=== PATIENT | female | born 1955 | race Caucasian/White ===

== ENCOUNTER → 2016-04-26 | Outpatient (CLI) | payer BC ==
[~2016-04-26] MED LIST: ALEVE 220MG220 MG PO; ASPIRIN E.C. 8181 MG PO; BENICAR; CELEXA40 MG; CIPRO 500MG TA500 MG PO; COZAAR100 MG PO; DESYREL 50MG50 MG PO; EFFEXOR-XR150 MG PO; FLEXERIL5 MG PO; GLUCOPHAGE500 MG/TAB PO; HCTZ12.5TAB PO; LEXAPRO20 MG PO; MOTRIN 800800 MG/TAB PO; NEURONTIN400 MG/CAP PO; NORCO 325 MG-51 TAB PO; PREVACID 30MG30 M1 PO; PREVACID30 MG PO; REXULTI0.5 MG PO; TIROSINT75 MC1 PO; TOPROL; TOPROL XL200 MG PO; TRILIPIX 135MG; TRILIPIX 135MG PO; TRILIPIX45 MG PO; VYTORIN 10 MG-21 TAB PO; WELLBUTRIN PO; ZETIA 10MG TAB10 MG PO; ZITHROMAX Z PA250 MG PO; ZOCOR; [UNRECOGNIZED DRUG - OTHER] IV
== END ==
LOC: BHSO 10:36
DX: F33.42 Major depressive disorder, recurrent, in full remission (principal)

== ENCOUNTER → 2016-04-28 | Outpatient (CLI) | payer BC | LOC: COL.RAD 07:51 | DX: K75.81 Nonalcoholic steatohepatitis (NASH) (principal); R74.8 Abnormal levels of other serum enzymes; K76.89 Other specified diseases of liver; Z90.49 Acquired absence of other specified parts of digestive tract ==

== ENCOUNTER → 2016-08-03 | Outpatient (CLI) | payer BC | LOC: COL.RAD 08-02 11:15 | DX: R22.1 Localized swelling, mass and lump, neck (principal) ==

== ENCOUNTER → 2016-08-12 | Outpatient (CLI) | payer BC | LOC: BHSO 09:39 | DX: F33.42 Major depressive disorder, recurrent, in full remission (principal) ==

== ENCOUNTER → 2016-08-23 | Outpatient (CLI) | payer BC | LOC: MC.RAD 11:40 | DX: Z12.31 Encounter for screening mammogram for malignant neoplasm of breast (principal) ==

== ENCOUNTER 2016-08-24 13:30 | Outpatient (RCR) | payer BC | END 2016-10-25 15:22 | LOC: WSPT 13:30 | DX: M25.562 Pain in left knee (principal) ==

== ENCOUNTER → 2016-08-25 | Outpatient (CLI) | payer BC ==
[~2016-08-25] VITALS: Ht 157.5 cm; Wt 75.0 kg
[2016-08-25 11:51] VITALS: BP 151/93; PULSE 72
== END ==
LOC: COL.RAD 11:15
DX: L98.9 Disorder of the skin and subcutaneous tissue, unspecified (principal)

== ENCOUNTER → 2016-12-28 | Outpatient (CLI) | payer BC | LOC: BHSO 10:53 | DX: F41.1 Generalized anxiety disorder (principal) ==

== ENCOUNTER → 2017-02-22 | Outpatient (CLI) | payer BC | LOC: BHSO 11:18 | DX: F33.42 Major depressive disorder, recurrent, in full remission (principal) ==

== ENCOUNTER → 2017-06-26 | Outpatient (CLI) | payer BC | LOC: COL.RAD 06-20 08:15 | DX: K75.81 Nonalcoholic steatohepatitis (NASH) (principal); K86.9 Disease of pancreas, unspecified; Z90.49 Acquired absence of other specified parts of digestive tract ==

== ENCOUNTER → 2017-06-27 | Outpatient (CLI) | payer BC | LOC: BHSO 10:55 | DX: F33.42 Major depressive disorder, recurrent, in full remission (principal) | CPT/HCPCS: G0463 ==

== ENCOUNTER → 2017-07-20 | Outpatient (CLI) | payer BC | LOC: COL.RAD 08:48 | DX: Z01.812 Encounter for preprocedural laboratory examination (principal); K76.89 Other specified diseases of liver; K57.30 Diverticulosis of large intestine without perforation or abscess without bleeding; K75.81 Nonalcoholic steatohepatitis (NASH); K86.2 Cyst of pancreas; K51.919 Ulcerative colitis, unspecified with unspecified complications | CPT/HCPCS: Q9967 ==

== ENCOUNTER → 2017-10-24 | Outpatient (CLI) | payer BC | LOC: BHSO 11:00 | DX: F33.41 Major depressive disorder, recurrent, in partial remission (principal) | CPT/HCPCS: G0463 ==

== ENCOUNTER → 2017-11-30 | Outpatient (CLI) | payer BC | LOC: MC.RAD 11:38 | DX: Z12.31 Encounter for screening mammogram for malignant neoplasm of breast (principal) ==

== ENCOUNTER → 2018-01-30 | Outpatient (CLI) | payer BC | LOC: COL.RAD 07:15 | DX: K75.81 Nonalcoholic steatohepatitis (NASH) (principal); K51.919 Ulcerative colitis, unspecified with unspecified complications; Z90.49 Acquired absence of other specified parts of digestive tract ==

== ENCOUNTER → 2018-03-29 | Outpatient (CLI) | payer BC | LOC: BHSO 10:55 | DX: F33.1 Major depressive disorder, recurrent, moderate (principal) | CPT/HCPCS: G0463 ==

== ENCOUNTER → 2018-05-30 | Outpatient (CLI) | payer BC | LOC: BHSO 11:02 | DX: F33.41 Major depressive disorder, recurrent, in partial remission (principal) | CPT/HCPCS: G0463 ==

== ENCOUNTER → 2018-07-12 | Outpatient (CLI) | payer BC | LOC: BHSO 09:17 | DX: F33.1 Major depressive disorder, recurrent, moderate (principal) | CPT/HCPCS: G0463 ==

== ENCOUNTER → 2018-09-05 | Outpatient (CLI) | payer BC | LOC: COL.RAD 07:20 | DX: K75.81 Nonalcoholic steatohepatitis (NASH) (principal); K83.8 Other specified diseases of biliary tract; K76.89 Other specified diseases of liver; Z90.49 Acquired absence of other specified parts of digestive tract ==

== ENCOUNTER → 2018-09-06 | Outpatient (CLI) | payer BC | LOC: BHSO 10:59 | DX: F33.41 Major depressive disorder, recurrent, in partial remission (principal) | CPT/HCPCS: G0463 ==

== ENCOUNTER → 2018-11-28 | Outpatient (CLI) | payer BC | LOC: BHSO 09:37 | DX: F33.42 Major depressive disorder, recurrent, in full remission (principal) | CPT/HCPCS: G0463 ==

== ENCOUNTER → 2019-02-26 | Outpatient (CLI) | payer BC | LOC: MC.RAD 13:45 | DX: Z12.31 Encounter for screening mammogram for malignant neoplasm of breast (principal) ==

== ENCOUNTER → 2019-02-27 | Outpatient (CLI) | payer BC | LOC: BHSO 10:00 | DX: F33.1 Major depressive disorder, recurrent, moderate (principal) | CPT/HCPCS: G0463 ==

== ENCOUNTER → 2019-05-09 | Outpatient (CLI) | payer BC | LOC: BHSO 10:17 | DX: F33.41 Major depressive disorder, recurrent, in partial remission (principal) | CPT/HCPCS: G0463 ==

== ENCOUNTER → 2019-05-13 | Outpatient (CLI) | payer BC | LOC: COL.RAD 09:20 | DX: K75.81 Nonalcoholic steatohepatitis (NASH) (principal); R16.0 Hepatomegaly, not elsewhere classified; K76.0 Fatty (change of) liver, not elsewhere classified; K83.8 Other specified diseases of biliary tract; R74.8 Abnormal levels of other serum enzymes; Z90.49 Acquired absence of other specified parts of digestive tract ==

== ENCOUNTER → 2019-09-12 | Outpatient (CLI) | payer BC | LOC: COL.RAD 07:30 | DX: K75.81 Nonalcoholic steatohepatitis (NASH) (principal); Z90.49 Acquired absence of other specified parts of digestive tract ==

== ENCOUNTER → 2019-10-01 | Outpatient (CLI) | payer BC | LOC: BHSO 10:20 | DX: F33.42 Major depressive disorder, recurrent, in full remission (principal) | CPT/HCPCS: G0463 ==

== ENCOUNTER → 2020-01-02 | Outpatient (CLI) | payer BC | LOC: BHSO 10:56 | DX: F33.41 Major depressive disorder, recurrent, in partial remission (principal) | CPT/HCPCS: G0463 ==

== ENCOUNTER → 2020-02-28 | Outpatient (CLI) | payer MEDICARE, BC | LOC: MC.RAD 10:28 | DX: Z12.31 Encounter for screening mammogram for malignant neoplasm of breast (principal) ==

== ENCOUNTER → 2020-03-24 | Outpatient (CLI) | payer MEDICARE, BC | LOC: COL.RAD 03-10 09:45 | DX: K75.81 Nonalcoholic steatohepatitis (NASH) (principal) ==

== ENCOUNTER 2020-04-03 13:39 | Outpatient (CLI) | payer MEDICARE, BC ==
[~2020-04-03] VITALS: Ht 157.5 cm; Wt 75.0 kg
[~2020-04-03 13:39] MED LIST changes: +COZAAR 50MG50 MG/TAB PO; -COZAAR100 MG PO; +HCTZ 25MG TAB25 MG PO; -HCTZ12.5TAB PO; +NORVASC2.5 MG PO; +REQUIP0.25 MG PO; +TIROSINT50 MC1 PO; -TIROSINT75 MC1 PO; +TOPROL XL 50MG50 MG PO; -TOPROL XL200 MG PO
[2020-04-03 14:35] VITALS: BP 167/94; PULSE 88; TEMP 98
[2020-04-03 15:07] VITALS: BP 154/83; PULSE 87; TEMP 98.3
[2020-04-03 15:30] VITALS: BP 153/75; PULSE 83
[2020-04-03 15:58] VITALS: BP 146/79; PULSE 83; TEMP 97.7
[2020-04-03 16:30] VITALS: BP 158/83; PULSE 87
[2020-04-03 16:47] VITALS: BP 155/70; PULSE 78
--- NOTE | 2020-04-03 17:00 | NUR ---
Pt tolerates infusion without issue. She ambulates from dept under own power.
[2020-04-04] MEDS ORDERED: ZOFRAN ODT4 MG PO (13:12)
== END 2020-04-03 17:00 | disposition home or self-care (01) ==
LOC: EUO 13:39
DX: U07.1 COVID-19 (principal); E11.9 Type 2 diabetes mellitus without complications; D84.9 Immunodeficiency, unspecified
CPT/HCPCS: J7050

== ENCOUNTER 2020-04-04 10:53 | Emergency (ER) | payer MEDICARE, BC ==
[~2020-04-04] VITALS: Ht 157.5 cm; Wt 75.0 kg
[2020-04-04 11:45] LABS: BASO % 0.3 % (0.0-2.0); EOS % 0.1 % (0-4.0); GRAN # 5.7 (1.4-6.5); GRAN % 77.1 % (42.2-75.2); HEMOGLOBIN 12.5 g/dl (12.5-16.0); LYMPH # 1.1 (1.2-3.4); LYMPH % 15.2 % (20.0-51.0); MEAN CELL VOLUME 92 fl (80.0-100.0); MEAN CORPUSCULAR HEMOGLOBIN 31 pg (27.0-31.0); MEAN CORPUSCULAR HGB CONC 34 g/dl (33.0-37.0); MEAN PLATELET VOLUME 9.3 fl (7.4-10.4); MONO # 0.5 (0.1-0.6); PLATELET COUNT 303 K/mm3 (130-400); RED BLOOD COUNT 4.01 M/mm3 (4.10-5.30); REDCELL DISTRIBUTION WIDTH-CV 13.4 % (11.5-14.5)
[2020-04-04 12:10] LABS: ALANINE AMINOTRANSFERASE 157 U/L (4-34); ALBUMIN 4.9 gm/dL (3.5-5.0); ALKALINE PHOSPHATASE 61 U/L (50-136); ANION GAP 14 mmol/L (7-16); AST,SGOT 148 U/L (15-37); BILIRUBIN,TOTAL 0.7 mg/dL (0.0-1.0); BLOOD UREA NITROGEN 19 mg/dL (7-17); CALCIUM 10.3 mg/dL (8.4-10.2); CARBON DIOXIDE 24 mmol/L (22-30); CHLORIDE 99 mmol/L (98-107); CREATININE, serum 1.27 (0.52-1.25); GLUCOSE 144 mg/dL (74-106); POTASSIUM 3.6 mmol/L (3.4-5.0); SODIUM 138 mmol/L (137-145)
[2020-04-04 12:21] LABS: TROPONIN-I < 0.012 ng/mL (0.000-0.035)
[2020-04-04 13:01] LABS: COLLECTION METHOD CLEAN CATCH
[2020-04-04 13:07] LABS: MUCOUS Present /lpf; PH 5 (5-8); SQUAMOUS EPITHELIAL 0-2 /hpf; URINE APPEARANCE Clear; URINE BACTERIA None Seen /hpf; URINE BILIRUBIN Negative (NEGATIVE); URINE BLOOD Negative (NEGATIVE); URINE COLOR Yellow; URINE GLUCOSE Negative (NEGATIVE); URINE KETONE Trace (NEGATIVE); URINE LEUKOCYTE ESTERASE Negative (NEGATIVE); URINE NITRATE Negative (NEGATIVE); URINE PROTEIN(semi-quant) Negative (NEGATIVE); URINE RBC 0-2 /hpf; URINE UROBILINOGEN Negative (NEGATIVE)
[2020-04-04 13:08] VITALS: TEMP 97.3
[2020-04-04] MEDS ORDERED: ZOFRAN ODT4 MG PO (13:12)
[2020-04-04 13:23] VITALS: BP 142/100; PULSE 90
== END 2020-04-04 13:45 | disposition home or self-care (01) ==
LOC: COL.ER 10:53
PROVIDERS: Emergency Medicine
DX: U07.1 COVID-19 (principal); Z87.891 Personal history of nicotine dependence; Z88.6 Allergy status to analgesic agent; Z88.1 Allergy status to other antibiotic agents; Z79.84 Long term (current) use of oral hypoglycemic drugs; Z79.82 Long term (current) use of aspirin
CPT/HCPCS: J2060; J2405; J7030

== ENCOUNTER → 2020-05-06 | Outpatient (CLI) | payer MEDICARE, BC ==
[~2020-05-06] VITALS: Ht 157.5 cm; Wt 77.1 kg
[2020-05-06] VITALS (12 sets, daily range): BP systolic 140–175; BP diastolic 86–97; PULSE 81–97
[~2020-05-06] MED LIST changes: +VIIBRYD20 MG PO; +ZOFRAN ODT4 MG PO
--- NOTE | 2020-05-06 14:40 | NUR ---
PT WAS TAKEN TO CT AND PLACED ON THE TABLE. MONITORING EQUIPMENT PLACED. SCAN DONE. DR MORENO CALLED
--- NOTE | 2020-05-06 16:40 | NUR ---
PT HAD COUGHING SPELL AND ENDED UP HAVING AN EMESIS OF ALL FOOD AND FLUID SHE HAD. ASKED DR MORENO FOR ZOFRAN 4 MG ODT, ORDER RECIEVED AND GIVEN TO PT. PT STATES THAT AFTER THE EMESIS SHE FELT MUCH BETTER.
== END ==
LOC: COL.RAD 12:45
PROVIDERS: Physician Assistant
DX: K75.81 Nonalcoholic steatohepatitis (NASH) (principal)

== ENCOUNTER 2020-09-04 16:23 | Inpatient (IN) | payer MEDICARE, BC ==
[~2020-09-04] VITALS: Ht 157.5 cm; Wt 71.6 kg
[2020-09-04 17:04] LABS: BASO % 0.2 % (0.0-2.0); EOS % 0.1 % (0-4.0); GRAN % 86.2 % (42.2-75.2); HEMOGLOBIN 12.7 g/dl (12.5-16.0); LYMPH # 1.4 (1.2-3.4); MEAN CELL VOLUME 89 fl (80.0-100.0); MEAN CORPUSCULAR HEMOGLOBIN 31 pg (27.0-31.0); MEAN CORPUSCULAR HGB CONC 34 g/dl (33.0-37.0); MEAN PLATELET VOLUME 9.5 fl (7.4-10.4); MONO % 5.1 % (1.7-9.3); PLATELET COUNT 463 K/mm3 (130-400); RED BLOOD COUNT 4.14 M/mm3 (4.10-5.30); REDCELL DISTRIBUTION WIDTH-CV 14.1 % (11.5-14.5)
[2020-09-04 17:06] LABS: ALBUMIN 5.1 gm/dL (3.5-5.0); BILIRUBIN,TOTAL 1.1 mg/dL (0.0-1.0); CREATININE, serum 0.91 (0.52-1.25); POTASSIUM 3.2 mmol/L (3.4-5.0); TOTAL PROTEIN 9.6 gm/dL (6.4-8.2)
[2020-09-04 17:12] LABS: HEMATOCRIT 36.9 % (37.0-47.0)
[2020-09-04] MEDS ORDERED: ATIVAN 1MG T1 MG/TAB PO (17:37)
[2020-09-04 19:00] LABS: COLLECTION METHOD CLEAN CATCH
[2020-09-04 19:11] LABS: MUCOUS Present /lpf; PH 5 (5-8); SQUAMOUS EPITHELIAL 0-2 /hpf; URINE APPEARANCE Clear; URINE BACTERIA Rare /hpf; URINE BILIRUBIN Negative (NEGATIVE); URINE BLOOD 3+ (NEGATIVE); URINE COLOR Yellow; URINE GLUCOSE 1+ (NEGATIVE); URINE KETONE Negative (NEGATIVE); URINE LEUKOCYTE ESTERASE Negative (NEGATIVE); URINE NITRATE Negative (NEGATIVE); URINE PROTEIN(semi-quant) 3+ (NEGATIVE); URINE RBC 0-2 /hpf; URINE UROBILINOGEN Negative (NEGATIVE)
[2020-09-04 21:58] VITALS: BP 164/86; PULSE 106; TEMP 98
--- NOTE | 2020-09-04 22:15 | NUR ---
Received patient from ED at 2130H. She is alert and oriented. Informed patient she is on NPO. She denies pain right now but states her pain is usually on the right side of abdomen and describes it as cramping pain. Informed patient regarding potassium replacement, stool specimen and accuchecks. She verbalizes understanding. She is requesting for another ativan as she feels anxious again and she said that she uses bipap at night but she doesn't have her machine with her. Called Rosal[facility] ALMARAZ for the ativan and bipap and she put an order.
[2020-09-04] MEDS ORDERED: REXULTI1 MG PO (22:18)
[2020-09-04] MEDS ORDERED: ZOFRAN 4MG T4 MG/TAB PO (22:21)
[2020-09-04] MEDS ORDERED: TOPICORT0.5CR15 TP (22:22)
[2020-09-04] MEDS ORDERED: TYLENOL 325MG325 MG PO (22:24)
[2020-09-04] MEDS ORDERED: ZYRTEC 10MG10 MG PO (22:24)
[2020-09-04] MEDS ORDERED: REQUIP 1MG T1 MG/TAB PO (22:25)
[2020-09-05] VITALS (7 sets, daily range): BP systolic 126–183; BP diastolic 73–91; PULSE 77–106; TEMP 97.9–99
[2020-09-05 06:50] LABS: BASO % 0.2 % (0.0-2.0); EOS % 0.1 % (0-4.0); GRAN # 11.2 (1.4-6.5); GRAN % 76.8 % (42.2-75.2); LYMPH # 2.1 (1.2-3.4); LYMPH % 14.7 % (20.0-51.0); MEAN CELL VOLUME 92 fl (80.0-100.0); MEAN CORPUSCULAR HGB CONC 33 g/dl (33.0-37.0); MEAN PLATELET VOLUME 9.6 fl (7.4-10.4); MONO # 1.1 (0.1-0.6); MONO % 7.6 % (1.7-9.3); RED BLOOD COUNT 3.52 M/mm3 (4.10-5.30); REDCELL DISTRIBUTION WIDTH-CV 14.6 % (11.5-14.5)
[2020-09-05] MEDS ORDERED: PROVENTIL0.09 MG/A1 IH (06:54)
[2020-09-05 06:57] LABS: HEMATOCRIT 32.2 % (37.0-47.0); HEMOGLOBIN 10.7 g/dl (12.5-16.0); MEAN CORPUSCULAR HEMOGLOBIN 30 pg (27.0-31.0); PLATELET COUNT 343 K/mm3 (130-400)
[2020-09-05 07:15] LABS: ALBUMIN 3.9 gm/dL (3.5-5.0); BILIRUBIN,TOTAL 0.5 mg/dL (0.0-1.0); CALCIUM 8.8 mg/dL (8.4-10.2); POTASSIUM 3.5 mmol/L (3.4-5.0); TOTAL PROTEIN 7.3 gm/dL (6.4-8.2)
--- NOTE | 2020-09-05 08:11 | NUR ---
Pt assessment complete. Pt laying in bed this am, she is A/O x4. Her breathing is even and unlabored on RA. She currently denies N/V. Abdominal pain 04/29, denies need for pain medication at this time. Has not had any stools since admission. POC discussed with patient, call light within reach.
--- NOTE | 2020-09-05 10:08 | NUR ---
SW met with patient to complete intake. Patient stated that she lived in [facility] with her Homar [phone] who is also the DPOA-HC. Patient stated that her will bring in the documentation for the DPOA for staff to copy and place in chart. Patient states that she does not utilize any DME and is independent with ADL's. Patient provides that her PCP is Dr. Santo, pharmacy is [facility] and she is able to afford her medications at this time. Patient provides that her plan is to return back to [place] home [place], and had not current questions or concerns in that regards. SW will continue to follow. Plan: Home
[2020-09-05 10:49] LABS: ARTERIAL BLD GAS O2 SATURATION 91.5 % (92-100); ARTERIAL BLD GAS TCO2 CT 26.8; ARTERIAL BLOOD GAS BASE EXCESS 1.7 (-2-2); ARTERIAL BLOOD GAS HCO3 25.6 meq/L (22-26); ARTERIAL BLOOD GAS PCO2 37.8 mmHg (35-45); ARTERIAL BLOOD GAS PO2 62.9 mmHg (80-100); ARTERIAL BLOOD GAS pH 7.45 (7.35-7.45)
[2020-09-05 11:21] LABS: INR 1.1 (0.8-3.0); PROTHROMBIN TIME 11.9 SECONDS (9.7-12.8)
[2020-09-05 11:24] LABS: PARTIAL THROMBOPLASTIN TIME 32.3 SECONDS (26.0-37.0)
--- NOTE | 2020-09-05 18:30 | NUR ---
Pt rested in bed most of the day, intermittent pain and nausea. Relieved by PRN medications. Has heparin drip infusing per protocol. POC discussed with patient. Call light within reach.
--- NOTE | 2020-09-05 19:10 | NUR ---
Pt left for CT scan at this time.
[2020-09-06 03:37] VITALS: BP 142/64; PULSE 89; TEMP 98.4
[2020-09-06 03:44] VITALS: BP 144/91; PULSE 83; TEMP 98
--- NOTE | 2020-09-06 05:23 | NUR ---
PATIENT IS RESTING IN COMFORTABLE. RECEIVED PHENERGAN FOR NAUSEA AND MORPHINE FOR PAIN. PATIENT WENT DOWN TO HEAD AND CHEST CT YESTERDAY. PATIENT ON HEPARIN DRIP LAST ANTI-XA 0.4 DRIP DECREASE TO 700 UNITS/HR. NEXT DRAW AT 0600 AM. WILL CONTINUE TO MONITOR.
[2020-09-06 06:54] VITALS: BP 144/70; PULSE 94; TEMP 98.7
[2020-09-06 08:34] LABS: BASO % 0.2 % (0.0-2.0); EOS # 0.1 (0.0-0.7); EOS % 1.6 % (0-4.0); GRAN # 5.7 (1.4-6.5); GRAN % 68.1 % (42.2-75.2); HEMOGLOBIN 11.3 g/dl (12.5-16.0); LYMPH # 1.9 (1.2-3.4); LYMPH % 22.8 % (20.0-51.0); MEAN CELL VOLUME 91 fl (80.0-100.0); MEAN CORPUSCULAR HEMOGLOBIN 31 pg (27.0-31.0); MEAN CORPUSCULAR HGB CONC 34 g/dl (33.0-37.0); MEAN PLATELET VOLUME 9.3 fl (7.4-10.4); MONO # 0.6 (0.1-0.6); MONO % 6.9 % (1.7-9.3); PLATELET COUNT 295 K/mm3 (130-400); RED BLOOD COUNT 3.69 M/mm3 (4.10-5.30); REDCELL DISTRIBUTION WIDTH-CV 14.2 % (11.5-14.5)
[2020-09-06 08:35] LABS: HEMATOCRIT 33.7 % (37.0-47.0)
[2020-09-06 08:46] LABS: ANION GAP 7 mmol/L (7-16); BLOOD UREA NITROGEN 14 mg/dL (7-17); CALCIUM 8.9 mg/dL (8.4-10.2); CARBON DIOXIDE 27 mmol/L (22-30); CHLORIDE 105 mmol/L (98-107); CREATININE, serum 0.94 (0.52-1.25); GLUCOSE 126 mg/dL (74-106); MAGNESIUM 2.1 mg/dL (1.6-2.3); POTASSIUM 3.5 mmol/L (3.4-5.0); SODIUM 138 mmol/L (137-145)
[2020-09-06 09:04] LABS: TROPONIN-I < 0.012 ng/mL (0.000-0.035)
--- NOTE | 2020-09-06 09:08 | NUR ---
Pt assessment complete. Pt laying in bed this am, she is A/O x4. Her breathing is even and unlabored on RA. Denies SOB. Pain 2/10 at this time. No N/V. Has not had any stools. States she is feeling much better. No chest pain. No further needs.
[2020-09-06 11:07] VITALS: BP 145/75; PULSE 90; TEMP 98.6
[2020-09-06 16:54] VITALS: BP 148/85; PULSE 71; TEMP 98.5
--- NOTE | 2020-09-06 18:38 | NUR ---
Pt had uneventful day. Pain better controlled. She did have some nausea with full liquids, pt declined any further PO intake for dinner. Continues on the heparin drip per protocol. Plan to be NPO at midnight. No further needs at this time.
--- NOTE | 2020-09-06 19:15 | NUR ---
REPORT RECEIVED FROM NURSE ALVARO. PATIENT ALERT AND ORIENTED X4, REPORTS FEELING MUCH BETTER TODAY. STARTED ON CLEAR LIQUID TODAY, ZOFRAN AND PHENERGAN GIVEN FOR NAUSEA. PATIENT INDEPENDENT IN ROOM. CONTINUE ON HEPARIN DRIP AND IV ABX. NEXT HEP-XA DRAW AT 23:30PM TODAY. WILL CONTINUE TO MONITOR.
[2020-09-06 20:29] VITALS: BP 146/75; PULSE 76; TEMP 99.4
[2020-09-07] VITALS (14 sets, daily range): BP systolic 113–161; BP diastolic 46–93; PULSE 84–99; TEMP 98.4–99.4
[2020-09-07 06:11] LABS: BASO % 0.3 % (0.0-2.0); EOS # 0.2 (0.0-0.7); EOS % 2.8 % (0-4.0); GRAN # 5.4 (1.4-6.5); GRAN % 68.2 % (42.2-75.2); LYMPH # 1.6 (1.2-3.4); LYMPH % 20.2 % (20.0-51.0); MEAN CELL VOLUME 92 fl (80.0-100.0); MEAN CORPUSCULAR HEMOGLOBIN 31 pg (27.0-31.0); MEAN CORPUSCULAR HGB CONC 34 g/dl (33.0-37.0); MEAN PLATELET VOLUME 9.5 fl (7.4-10.4); MONO # 0.6 (0.1-0.6); MONO % 8.2 % (1.7-9.3); PLATELET COUNT 290 K/mm3 (130-400); RED BLOOD COUNT 3.86 M/mm3 (4.10-5.30)
[2020-09-07 06:16] LABS: HEMATOCRIT 35.4 % (37.0-47.0)
[2020-09-07 06:20] LABS: ALBUMIN 4.1 gm/dL (3.5-5.0); BILIRUBIN,TOTAL 0.8 mg/dL (0.0-1.0); CALCIUM 9.6 mg/dL (8.4-10.2); MAGNESIUM 1.8 mg/dL (1.6-2.3); POTASSIUM 3.6 mmol/L (3.4-5.0); TOTAL PROTEIN 7.7 gm/dL (6.4-8.2)
--- NOTE | 2020-09-07 09:30 | NUR ---
Pt assessment complete. Pt is sitting up in bed upon entry, A/O x4. Her breathing is even and unlabored on RA. Pt denies SOB. Pain 2/10 at this time to abdomen. No nausea at this time. POC discussed with patient, awaiting the doctors response for heart cath. Heparin drip infusing per protocol. No needs at this time.
[2020-09-07 11:11] LABS: CLOSTRIDIUM DIFF A/B NEG; CLOSTRIDIUM DIFF A/B INTERP NonToxigenic C.diff
--- NOTE | 2020-09-07 12:21 | NUR ---
SEE MERGE DOCUMENTATION FOR MEDICATION ADMINISTRATION TIMES AND INTRA/POST PROCEDURE SEDATION ASSESSMENT.
--- NOTE | 2020-09-07 18:23 | NUR ---
Pt had heart cath today, air to band released and removed. Bandaid placed to site. No bleeding or hematoma present. Pt tolerated clear liquids after procedure with no increase in pain or nausea. Attempted to drink a sprite which made her nauseous. Has been having more frequent loose stools since. Pt able to shower today before procedure. IV to RFA dc'd catheter tip intact. Has bilateral hand IV's currently.
--- NOTE | 2020-09-07 19:03 | NUR ---
Received report from Kathleen. Patient awake in bed. Ciprofloxacin ongoing.
--- NOTE | 2020-09-07 20:50 | NUR ---
Patient complains of being nauseous after taking her night pills. She said Zofran didn't work for her and she wants the Phenergan. She denies pain. She reports she's still having loose stools.
[2020-09-08 04:22] VITALS: BP 152/82; PULSE 99; TEMP 99.7
[2020-09-08 07:17] VITALS: BP 128/91; PULSE 93; TEMP 98.2
[2020-09-08 07:46] LABS: BASO % 0.3 % (0.0-2.0); EOS # 0.2 (0.0-0.7); EOS % 2.1 % (0-4.0); GRAN # 5.5 (1.4-6.5); HEMOGLOBIN 11.5 g/dl (12.5-16.0); LYMPH # 0.7 (1.2-3.4); LYMPH % 10.5 % (20.0-51.0); MEAN CELL VOLUME 91 fl (80.0-100.0); MEAN CORPUSCULAR HEMOGLOBIN 31 pg (27.0-31.0); MEAN CORPUSCULAR HGB CONC 34 g/dl (33.0-37.0); MEAN PLATELET VOLUME 9.9 fl (7.4-10.4); MONO # 0.6 (0.1-0.6); MONO % 8.8 % (1.7-9.3); PLATELET COUNT 296 K/mm3 (130-400); RED BLOOD COUNT 3.75 M/mm3 (4.10-5.30)
[2020-09-08 07:52] LABS: HEMATOCRIT 34.1 % (37.0-47.0)
[2020-09-08 07:56] LABS: INR 1.1 (0.8-3.0)
[2020-09-08 08:00] LABS: ALBUMIN 3.8 gm/dL (3.5-5.0); BILIRUBIN,TOTAL 0.5 mg/dL (0.0-1.0); CALCIUM 9.2 mg/dL (8.4-10.2); CREATININE, serum 1.03 (0.52-1.25); MAGNESIUM 1.7 mg/dL (1.6-2.3); POTASSIUM 3.9 mmol/L (3.4-5.0); TOTAL PROTEIN 7.2 gm/dL (6.4-8.2)
[2020-09-08 11:43] VITALS: BP 130/84; PULSE 94; TEMP 98.1
[2020-09-08 17:21] VITALS: BP 138/83; PULSE 91; TEMP 99.3
--- NOTE | 2020-09-08 18:17 | NUR ---
PPN paused for IV antibiotic infusions
--- NOTE | 2020-09-08 19:08 | NUR ---
Received report from Raul. Patient awake in bed. Denies pain or nausea. Antibiotics currently infusing.
[2020-09-08 21:05] VITALS: BP 134/77; PULSE 92; TEMP 99.8
--- NOTE | 2020-09-08 22:30 | NUR ---
Patient complains of pain on her IV site. Faye CARCAMO reinserted on right AC G20.
[2020-09-09 00:41] VITALS: BP 112/72; PULSE 83; TEMP 98.2
[2020-09-09 04:53] VITALS: BP 115/99; PULSE 93; TEMP 98.9
--- NOTE | 2020-09-09 06:30 | NUR ---
Patient hopeful to go home today. Still with complains of nausea. Phenergan was given.
[2020-09-09 06:49] LABS: BASO % 0.3 % (0.0-2.0); EOS # 0.3 (0.0-0.7); EOS % 4.7 % (0-4.0); GRAN # 3.6 (1.4-6.5); GRAN % 58.4 % (42.2-75.2); HEMOGLOBIN 12.3 g/dl (12.5-16.0); LYMPH # 1.5 (1.2-3.4); LYMPH % 24.6 % (20.0-51.0); MEAN CELL VOLUME 92 fl (80.0-100.0); MEAN CORPUSCULAR HEMOGLOBIN 31 pg (27.0-31.0); MEAN CORPUSCULAR HGB CONC 34 g/dl (33.0-37.0); MEAN PLATELET VOLUME 9.5 fl (7.4-10.4); MONO # 0.7 (0.1-0.6); MONO % 11.5 % (1.7-9.3); PLATELET COUNT 320 K/mm3 (130-400); RED BLOOD COUNT 3.96 M/mm3 (4.10-5.30); REDCELL DISTRIBUTION WIDTH-CV 13.9 % (11.5-14.5)
[2020-09-09 06:50] LABS: HEMATOCRIT 36.6 % (37.0-47.0)
[2020-09-09 07:03] LABS: CALCIUM 9.4 mg/dL (8.4-10.2); CREATININE, serum 0.93 (0.52-1.25); MAGNESIUM 1.7 mg/dL (1.6-2.3); PHOSPHOROUS 4.3 mg/dL (2.5-4.5); POTASSIUM 3.5 mmol/L (3.4-5.0)
[2020-09-09 07:11] LABS: PRE ALBUMIN 22.5 mg/dL (17.6-36.0)
[2020-09-09 07:34] VITALS: BP 127/74; PULSE 89; TEMP 98
--- NOTE | 2020-09-09 09:00 | NUR ---
Patient C/O of nausea upon entering the room. Pharmacy called for phenergan, administered as ordered. Scheduled medication given. Shift assessment preformed. Patient denies any pain at this time. K+ replacement completed. Diet advanced to Banks/Gerd diet. Patient tolerating well. Patient denies any discomfort or futher needs at this time. Will continue to monitor. VSS. Call light in reach. PPN running at 83 ml/hr.
[2020-09-09 11:57] VITALS: BP 125/67; PULSE 88; TEMP 97.9
--- NOTE | 2020-09-09 13:00 | NUR ---
Report received from CARLOS ALBERTO Franco. Pt in bed resting, requesting PRN phenergan when available. Will provide and contnue to monitor.
[2020-09-09] MEDS ORDERED: PHENERGAN 25 TA25 MG PO (15:02)
[2020-09-09] MEDS ORDERED: CIPRO 500MG TA500 MG PO (15:03)
[2020-09-09] MEDS ORDERED: VANCOCIN H125 MG/CAP PO (15:03)
[2020-09-09] MEDS ORDERED: FLAGYL500 MG PO (15:04)
[2020-09-09] MEDS ORDERED: TOPROL XL100 MG PO (15:09)
--- NOTE | 2020-09-09 18:26 | NUR ---
Discharge teaching completed at this time. Pt received discharge packet, rrviewed f/u appointments, discharge meds. Answered all questions. Pt INT dc'd, tip intact. PT left with all belongings, escorted out via w/c with all belongings,family to drive home, criteria met.
== END 2020-09-09 17:45 | disposition home or self-care (01) | DRG 871 ==
LOC: COL.ER 16:23 → MEDICAL 18:33
PROVIDERS: Internal Medicine; Nurse Practitioner Family; Nurse Practitioner Primary Care; Physician Assistant; ADMIT Hospitalist
PROC: 4A023N6 Measurement of Cardiac Sampling and Pressure, Right Heart, Percutaneous Approach (ICD-10-PCS; principal; 2020-09-07)
PROC: B2111ZZ Fluoroscopy of Multiple Coronary Arteries using Low Osmolar Contrast (ICD-10-PCS; 2020-09-07)
DX: A41.9 Sepsis, unspecified organism (principal); I21.A1 Myocardial infarction type 2; K51.90 Ulcerative colitis, unspecified, without complications; D83.9 Common variable immunodeficiency, unspecified; E46 Unspecified protein-calorie malnutrition; K57.32 Diverticulitis of large intestine without perforation or abscess without bleeding; K21.9 Gastro-esophageal reflux disease without esophagitis; R74.01 Elevation of levels of liver transaminase levels; G47.33 Obstructive sleep apnea (adult) (pediatric); D47.3 Essential (hemorrhagic) thrombocythemia; E87.6 Hypokalemia; F41.1 Generalized anxiety disorder; F32.9 Major depressive disorder, single episode, unspecified; E83.42 Hypomagnesemia; G31.84 Mild cognitive impairment of uncertain or unknown etiology; E11.9 Type 2 diabetes mellitus without complications; R51.9 Headache, unspecified; Z86.16 Personal history of COVID-19
CPT/HCPCS: 99223-AI; 99232-AI; 99233-AI; 99239; J0744; J1644; J1650; J2060; J2250; J2270; J2405; J2550; J3010; J3475; J3480; J7030; Q9967

== ENCOUNTER 2020-09-12 21:00 | Emergency (ER) | payer MEDICARE, BC ==
[~2020-09-12] VITALS: Ht 157.5 cm; Wt 71.8 kg
[~2020-09-12 21:00] MED LIST changes: +ATIVAN 1MG T1 MG/TAB PO; +FLAGYL500 MG PO; +PHENERGAN 25 TA25 MG PO; +PROVENTIL0.09 MG/A1 IH; +REQUIP 1MG T1 MG/TAB PO; +REXULTI1 MG PO; +TOPICORT0.5CR15 TP; +TOPROL XL100 MG PO; +TYLENOL 325MG325 MG PO; +VANCOCIN H125 MG/CAP PO; +ZOFRAN 4MG T4 MG/TAB PO; +ZYRTEC 10MG10 MG PO
[2020-09-12 21:06] VITALS: TEMP 98.9
[2020-09-12] MEDS ORDERED: PERCOCET 325 MG1 TA2 PO (21:29)
[2020-09-12] MEDS ORDERED: DOXYCYCLINE 10100 MG PO (21:29)
[2020-09-12 21:40] VITALS: BP 138/90; PULSE 90
== END 2020-09-12 21:40 | disposition home or self-care (01) ==
LOC: COL.ER 21:00
DX: L03.114 Cellulitis of left upper limb (principal); K57.92 Diverticulitis of intestine, part unspecified, without perforation or abscess without bleeding; I10 Essential (primary) hypertension; E78.5 Hyperlipidemia, unspecified; E03.9 Hypothyroidism, unspecified; K21.9 Gastro-esophageal reflux disease without esophagitis; F32.9 Major depressive disorder, single episode, unspecified; E11.9 Type 2 diabetes mellitus without complications; Z86.16 Personal history of COVID-19; Z87.891 Personal history of nicotine dependence; Z88.1 Allergy status to other antibiotic agents; Z79.899 Other long term (current) drug therapy; Z79.890 Hormone replacement therapy

== ENCOUNTER → 2021-04-30 | Outpatient (CLI) | payer MEDICARE, BC ==
[~2021-04-30] MED LIST changes: +DOXYCYCLINE 10100 MG PO; +PERCOCET 325 MG1 TA2 PO
== END ==
LOC: COL.RAD 13:21
DX: K57.30 Diverticulosis of large intestine without perforation or abscess without bleeding (principal); K51.90 Ulcerative colitis, unspecified, without complications; K76.0 Fatty (change of) liver, not elsewhere classified; E27.8 Other specified disorders of adrenal gland; Z90.49 Acquired absence of other specified parts of digestive tract
CPT/HCPCS: Q9967

== ENCOUNTER → 2021-08-12 | Outpatient (CLI) | payer MEDICARE, BC | LOC: MC.RAD 12:52 | DX: Z12.31 Encounter for screening mammogram for malignant neoplasm of breast (principal) ==

== ENCOUNTER → 2023-06-30 | Outpatient (CLI) | payer MEDICARE, BC ==
[~2023-06-30] MED LIST changes: +ATIVAN 0.50.5 MG/TAB PO; +CEPHALEXIN500 M1 PO; +GLUCOPHAGE1000 MG PO
[2023-06-30 16:05] LABS: BASO % 0.4 % (0.0-2.0); EOS # 0.2 K/mm3 (0.0-0.7); EOS % 3.2 % (0.0-4.0); GRAN # 3.7 K/mm3 (1.4-6.5); GRAN % 51.9 % (42.2-75.2); HEMOGLOBIN 12.2 g/dl (12.5-16.0); LYMPH # 2.6 K/mm3 (1.2-3.4); LYMPH % 36.9 % (20.0-51.0); MEAN CELL VOLUME 90 fl (80.0-100.0); MEAN CORPUSCULAR HEMOGLOBIN 31 pg (27-31); MEAN CORPUSCULAR HGB CONC 35 g/dl (33.0-37.0); MEAN PLATELET VOLUME 8.7 fl (7.4-10.4); MONO # 0.5 K/mm3 (0.1-0.6); MONO % 7.3 % (1.7-9.3); PLATELET COUNT 416 K/mm3 (130-400); RED BLOOD COUNT 3.92 M/mm3 (4.10-5.30); REDCELL DISTRIBUTION WIDTH-CV 13.9 % (11.5-14.5)
[2023-06-30 16:20] LABS: HEMATOCRIT 35.3 % (37.0-47.0)
[2023-06-30 16:27] LABS: ALBUMIN 4.1 g/dL (3.4-4.8); BILIRUBIN,TOTAL 0.3 mg/dL (0.2-1.2); CALCIUM 10.3 mg/dL (8.4-10.2); CREATININE, serum 1.27 mg/dL (0.57-1.11); POTASSIUM 4.4 mEq/L (3.5-4.5); TOTAL PROTEIN 8.2 g/dl (6.2-8.1)
== END ==
LOC: COL.LAB 15:35
PROVIDERS: Physician Assistant
DX: M79.10 Myalgia, unspecified site (principal); R61 Generalized hyperhidrosis; R05.1 Acute cough

== ENCOUNTER → 2023-12-06 | Outpatient (CLI) | payer MEDICARE, BC | LOC: MC.RAD 09:50 | DX: Z12.31 Encounter for screening mammogram for malignant neoplasm of breast (principal) ==